=== PATIENT | male | born 1960 | race Caucasian/White ===

== ENCOUNTER 2017-03-27 22:16 | Emergency (ER) | payer OTHER, BC ==
[~2017-03-27] VITALS: Ht 180.3 cm; Wt 127.0 kg
[~2017-03-27 22:16] MED LIST: ADLT ASA LOW81 MG PO; ASPIRIN325 MG PO; ASPIRIN81 MG PO; CARVEDILOL6.25 MG PO; GLIPIZIDE5 M2 PO; LISINOPRIL10 MG PO; METFORMIN1000 MG PO; METFORMIN500 MG PO; PLAVIX75 MG PO; PRAVASTATIN SOD20 MG PO; PROAIR HFA IN
[2017-03-27] MEDS ORDERED: LEVEMIR100 UNIT/M SC (23:02)
[2017-03-27 23:13] LABS: HEMATOCRIT 52.1 % (39.0-50.0); HEMOGLOBIN 16.7 g/dl (14.0-18.0); IMMATURE GRANULOCYTES 0.4 % (0.0-1.0); MEAN CELL VOLUME 88.6 fL CALC (80.0-100.0); MEAN CORPUSCULAR HGB 28.4 pG CALC (26.0-32.0); MEAN CORPUSCULAR HGB CONC 32.1 g/L CALC (32.0-36.0); NEUT# 11.07 thou/uL (1.82-7.42); RED BLOOD COUNT 5.88 mill/uL (4.70-6.10); RED CELL DISTRI WIDTH 13.3 % (11.5-15.5)
[2017-03-27 23:32] LABS: ALBUMIN 3.8 g/dL (3.2-5.0); ALKALINE PHOSPHATASE 91 u/l (38-126); ANION GAP 16 (6-22 (CALC)); BILIRUBIN, TOTAL 0.7 mg/dL (0.0-1.4); BUN 13 mg/dL (9-20); BUN/CREATININE RATIO 13 (12-20 (CALC)); CALCIUM 9.3 mg/dL (8.4-10.2); CARBON DIOXIDE 28 mmol/l (22-30); CHLORIDE 102 mmol/l (95-108); GFR > 60 ML/MIN (>=60 (CALC)); GFR FOR AFR.AMER. > 60 ML/MIN (>=60 (CALC)); GLUCOSE 306 mg/dL (75-110); POTASSIUM 4.6 mmol/l (3.5-5.1); SGOT/AST 44 u/l (17-59); SGPT/ALT 66 u/l (21-72); SODIUM 141 mmol/l (137-146); TOTAL PROTEIN 6.1 g/dL (6.3-8.2)
[2017-03-27 23:35] LABS: ACT PARTIAL THROMBO TIME 30.8 SECONDS (20.0-32.5); INTERNATIONAL NORMALIZED RATIO 1.1 RATIO (0.7-1.3); PROTHROMBIN TIME 11.7 SECONDS (9.0-12.5)
[2017-03-27 23:45] LABS: MYOGLOBIN 38 ng/mL (0 - 121)
[2017-03-28 00:41] VITALS: BP 126/74
== END 2017-03-28 00:41 | disposition short-term general hospital (02) | DRG 310 ==
LOC: ED 22:16
PROVIDERS: Emergency Medicine
DX: I47.1 Supraventricular tachycardia (principal); I11.9 Hypertensive heart disease without heart failure; I10 Essential (primary) hypertension; I25.10 Atherosclerotic heart disease of native coronary artery without angina pectoris; J44.9 Chronic obstructive pulmonary disease, unspecified; F17.210 Nicotine dependence, cigarettes, uncomplicated
CPT/HCPCS: J0282

== ENCOUNTER → 2018-07-26 | Outpatient (REF) | payer OTHER, BC ==
[~2018-07-26] MED LIST changes: +LEVEMIR100 UNIT/M SC
[2018-07-26 08:20] LABS: HEMATOCRIT 53.4 % (39.0-50.0); HEMOGLOBIN 16.9 g/dl (14.0-18.0); MEAN CELL VOLUME 89.7 fL CALC (80.0-100.0); MEAN CORPUSCULAR HGB 28.4 pG CALC (26.0-32.0); MEAN CORPUSCULAR HGB CONC 31.6 g/L CALC (32.0-36.0); RED BLOOD COUNT 5.95 mill/uL (4.70-6.10); RED CELL DISTRI WIDTH 14.5 % (11.5-15.5)
[2018-07-26 08:45] LABS: ALBUMIN 3.5 g/dL (3.2-5.0); ALKALINE PHOSPHATASE 92 u/l (38-126); ANION GAP 12 (6-22 (CALC)); BILIRUBIN, TOTAL 0.5 mg/dL (0.0-1.4); BUN 14 mg/dL (9-20); BUN/CREATININE RATIO 18 (12-20 (CALC)); CALCULATED LDLCHOLESTEROL 61 mg/dL (62-129 (CALC)); CARBON DIOXIDE 31 mmol/l (22-30); CHLORIDE 105 mmol/l (95-108); CHOLESTEROL HDL RATIO 3.3 (<4.4 (CALC)); CREATININE 0.8 mg/dL (0.7-1.3); GFR > 60 ML/MIN (>=60 (CALC)); GFR FOR AFR.AMER. > 60 ML/MIN (>=60 (CALC)); HDL CHOLESTEROL 33 mg/dL (>=40); POTASSIUM 4.7 mmol/l (3.5-5.1); SGOT/AST 13 u/l (17-59); SODIUM 142 mmol/l (137-146); TOTAL CHOLESTEROL 110 mg/dl (0-199); TOTAL PROTEIN 6.2 g/dL (6.3-8.2); TOTAL TRIGLYCERIDES 78 mg/dl (30-149); VLDL CHOLESTROL 16 mg/dl (4-45 (CALC))
[2018-07-26 09:05] LABS: TSH, 3RD GENERATION 2.16 uIU/mL (0.47 - 4.68)
== END | disposition home or self-care (01) | DRG 639 ==
LOC: LAB 07:00
PROVIDERS: ATTEND Internal Medicine
DX: E11.65 Type 2 diabetes mellitus with hyperglycemia (principal); E78.49 Other hyperlipidemia; I10 Essential (primary) hypertension

== ENCOUNTER → 2019-01-13 | Outpatient (REF) | payer OTHER, BC ==
[2019-01-13 08:13] LABS: HEMATOCRIT 51.4 % (39.0-50.0); HEMOGLOBIN 15.9 g/dl (14.0-18.0); MEAN CELL VOLUME 87.6 fL CALC (80.0-100.0); MEAN CORPUSCULAR HGB 27.1 pG CALC (26.0-32.0); MEAN CORPUSCULAR HGB CONC 30.9 g/L CALC (32.0-36.0); RED BLOOD COUNT 5.87 mill/uL (4.70-6.10); RED CELL DISTRI WIDTH 14.6 % (11.5-15.5)
[2019-01-13 08:19] LABS: ALBUMIN 3.5 g/dL (3.2-5.0); ALKALINE PHOSPHATASE 83 u/l (38-126); ANION GAP 13 (6-22 (CALC)); BILIRUBIN, TOTAL 0.2 mg/dL (0.0-1.4); BUN 17 mg/dL (9-20); BUN/CREATININE RATIO 19 (12-20 (CALC)); CALCULATED LDLCHOLESTEROL 48 mg/dL (62-129 (CALC)); CARBON DIOXIDE 29 mmol/l (22-30); CHLORIDE 105 mmol/l (95-108); CHOLESTEROL HDL RATIO 3.4 (<4.4 (CALC)); CREATININE 0.9 mg/dL (0.7-1.3); GFR > 60 ML/MIN (>=60 (CALC)); GFR FOR AFR.AMER. > 60 ML/MIN (>=60 (CALC)); HDL CHOLESTEROL 26 mg/dL (>=40); POTASSIUM 4.6 mmol/l (3.5-5.1); SGOT/AST 11 u/l (17-59); SODIUM 142 mmol/l (137-146); TOTAL CHOLESTEROL 90 mg/dl (0-199); TOTAL TRIGLYCERIDES 78 mg/dl (30-149); VLDL CHOLESTROL 16 mg/dl (4-45 (CALC))
[2019-01-13 08:49] LABS: TSH, 3RD GENERATION 1.96 uIU/mL (0.47 - 4.68)
== END | disposition home or self-care (01) | DRG 639 ==
LOC: LAB 07:01
PROVIDERS: ATTEND Nurse Practitioner
DX: E11.65 Type 2 diabetes mellitus with hyperglycemia (principal); E78.2 Mixed hyperlipidemia; I10 Essential (primary) hypertension

== ENCOUNTER 2019-10-07 08:08 | Day surgery (SDC) | payer OTHER, BC ==
[~2019-10-07] VITALS: Ht 180.3 cm; Wt 145.1 kg
[~2019-10-07 08:08] MED LIST changes: +AMLODIPINE BESY10 MG PO; +COREG6.25 MG PO; +FUROSEMIDE20 MG PO; +HUMALOG100 UNIT/M SC; +LIPITOR80 M1 PO; +LOSARTAN POTASS50 MG PO; +PROTONIX20 M1 PO; +SOTALOL HCL80 MG PO; +TRELEGY ELLIPTA1 AER; +XARELTO10 MG PO
[2019-10-07 10:24] VITALS: BP 139/91
--- NOTE | 2019-10-24 12:53 | NUR ---
PER DR KOTHARI PATIENT TO RETURN FOR REPEAT COLONOSCOPY IN 3 YEARS
== END 2019-10-07 11:15 | disposition home or self-care (01) | DRG 951 ==
LOC: ENDO 08:08 → ORM 12:00 → ENDO 12:00
PROVIDERS: ATTEND Surgery
PROC: 0DBN8ZX Excision of Sigmoid Colon, Via Natural or Artificial Opening Endoscopic, Diagnostic (ICD-10-PCS; principal; 2019-10-07)
PROC: 0DBL8ZX Excision of Transverse Colon, Via Natural or Artificial Opening Endoscopic, Diagnostic (ICD-10-PCS; 2019-10-07)
DX: Z12.11 Encounter for screening for malignant neoplasm of colon (principal); D12.3 Benign neoplasm of transverse colon; K63.5 Polyp of colon; K57.30 Diverticulosis of large intestine without perforation or abscess without bleeding; K64.8 Other hemorrhoids; I25.2 Old myocardial infarction; Z86.010 Personal history of colon polyps; Z95.5 Presence of coronary angioplasty implant and graft